=== PATIENT | female | born 1990 | race African-American/Black ===

== ENCOUNTER 2022-09-20 15:16 | Emergency (ER) | payer OTHER ==
[~2022-09-20] VITALS: Ht 170.2 cm; Wt 86.2 kg
[2022-09-20] MEDS ORDERED: CYCLOBENZAPRINE10 MG PO (15:41)
== END 2022-09-20 15:49 | disposition home or self-care (01) ==
LOC: ER 15:22
DX: M54.2 Cervicalgia (principal); M54.50 Low back pain, unspecified; R50.9 Fever, unspecified; V43.62XA Car passenger injured in collision with other type car in traffic accident, initial encounter; Y92.488 Other paved roadways as the place of occurrence of the external cause
CPT/HCPCS: 99282